=== PATIENT | male | born 1975 | race Caucasian/White ===

== ENCOUNTER 2020-08-19 08:19 | Inpatient (IN) | payer OTHER ==
[~2020-08-19] VITALS: Ht 182.9 cm; Wt 97.5 kg
[2020-08-19 09:03] LABS: HEMOGLOBIN 14.8 gm/dl (14.0-17.5); RED BLOOD COUNT 4.19 M/UL (4.20-5.50); WHITE BLOOD COUNT 8.9 K/UL (4.5-11.0)
[2020-08-19 09:30] LABS: BUN/CREATININE RATIO 12 (0-10)
[2020-08-19] MEDS ORDERED: MULTI-VITAMIN1 EACH PO (10:14)
[2020-08-19 16:49] LABS: BUN/CREATININE RATIO 10 (0-10)
[2020-08-20 05:28] LABS: HEMOGLOBIN 13.1 gm/dl (14.0-17.5)
[2020-08-20 05:32] LABS: RED BLOOD COUNT 3.72 M/UL (4.20-5.50)
[2020-08-20 05:55] LABS: BUN/CREATININE RATIO 9 (0-10)
[2020-08-21 04:24] LABS: BUN/CREATININE RATIO 8 (0-10)
[2020-08-22 03:20] LABS: BUN/CREATININE RATIO 11 (0-10)
[2020-08-22] MEDS ORDERED: LIBRIUM CAP 2525 MG PO (11:45)
== END 2020-08-22 19:15 | DRG 897 ==
LOC: ER1 08:19 → CCU 09:42 → PROG CARE 09:42 → CDU 09:42 → CCU 23:34 → PROG CARE 08-20 11:40
PROVIDERS: Emergency Medicine; Physician Assistant; ADMIT Internal Medicine Infectious Disease
DX: F10.139 Alcohol abuse with withdrawal, unspecified (principal); E87.2 Acidosis; G40.89 Other seizures; R74.01 Elevation of levels of liver transaminase levels; R00.0 Tachycardia, unspecified; Z20.822 Contact with and (suspected) exposure to COVID-19; D69.6 Thrombocytopenia, unspecified; Z87.891 Personal history of nicotine dependence
CPT/HCPCS: 36415; 70450; 71045; 80048; 80053; 80307; 81001; 82550; 82553; 83605; 83735; 83874; 84484; 85025; 86850; 86900; 86901; 96365; 96366; 96368; 96375; 96376; 99285; G0480; J2060; J3411; J3475; J7030; U0002

== ENCOUNTER 2021-08-30 01:30 | Emergency (ER) | payer OTHER ==
[~2021-08-30 01:30] MED LIST: LIBRIUM CAP 2525 MG PO; MULTI-VITAMIN1 EACH PO
[2021-08-30 02:30] LABS: HEMOGLOBIN 14.2 gm/dl (14.0-17.5); RED BLOOD COUNT 4.19 M/UL (4.20-5.50); WHITE BLOOD COUNT 5.5 K/UL (4.5-11.0)
[2021-08-30 02:44] LABS: BUN/CREATININE RATIO 14 (0-10)
[2021-08-30] MEDS ORDERED: LIBRIUM CAP 2525 MG PO ×2 (03:33→04:09)
== END 2021-08-30 04:20 | disposition home or self-care (01) ==
LOC: ER1 01:30
PROVIDERS: Student in an Organized Health Care Education/Training Program
DX: S01.112A Laceration without foreign body of left eyelid and periocular area, initial encounter (principal); F10.139 Alcohol abuse with withdrawal, unspecified; F19.10 Other psychoactive substance abuse, uncomplicated; Z23 Encounter for immunization; X58.XXXA Exposure to other specified factors, initial encounter
CPT/HCPCS: 70450; 80048; 85025; 90471; 90715; 93005; 99283; G0480